=== PATIENT | male | born 1985 | race American Indian/Alaskan Native ===

== ENCOUNTER 2021-03-23 12:50 | Emergency (ER) | payer MEDICARE ==
[2021-03-23 13:00] VITALS: BP 105/52
--- NOTE | 2021-03-23 14:15 | XRay Report ---
RIGHT HAND 4 VIEW(S) INDICATION / CLINICAL INFORMATION: PAIN AND SWELLING COMPARISON: None available. FINDINGS: BONES / JOINT(S): There is dorsal subluxation of the bases of the fourth and fifth metacarpals with a n adjacent osseous fragment likely representing a distal carpal row fracture/base of the metacarpal fracture. No significant arthritis. SOFT TISSUES: There is dorsal soft tissue swelling. ADDITIONAL FINDINGS: None. Signer Name: Humphrey Prakash DO Signed: 03/23/2021 2:10 PM Workstation Name: [id number]
--- NOTE | 2021-03-23 15:03 | Emergency Department Report ---
ED General Adult HPI - General Chief complaint: Extremity Injury, Upper Stated complaint: BROKEN FINGER ON RIGHT HAND Time Seen by Provider: 03/23/21 14:17 Source: patient Mode of arrival: Ambulatory Limitations: No Limitations - History of Present Illness Initial comments: 35-year-old [id number] male patient presents to the emergency department with complaints of right hand pain for 1 week. Patient states he became agitated while he was at another hospital and punched a wall. No other injuries. Patient has been taking Motrin with limited relief. No history of prior injuries to the right hand. Denies headache, neck pain, shoulder pain, elbow pain, wrist pain, paresthesias, numbness. Denies all other complaints at this time. - Related Data Previous Rx's Medication Instructions Recorded Last Taken Type Naproxen 500 mg PO BID #20 tablet 03/23/21 Unknown Rx Allergies Allergy/AdvReac Type Severity Reaction Status Date / Time No Known Allergies Allergy Unverified 03/23/21 12:54 ED Review of Systems ROS: Stated complaint: BROKEN FINGER ON RIGHT HAND Other details as noted in HPI Other: GENERAL: Negative for fever. CARDIOVASCULAR: Negative for chest pain. PULMONARY: Negative for shortness of breath. GASTROINTESTINAL: Negative for abdominal pain. MUSCULOSKELETAL: Positive for hand pain. NEUROLOGICAL: Negative for headache. INTEGUMENTARY: Negative for rash. ED Past Medical Hx - Past Medical History Hx Hypertension: Yes Hx Diabetes: Yes - Social History Smoking Status: Never Smoker Substance Use Type: None - Medications Home Medications: Home Medications Medication Instructions Recorded Confirmed Last Taken Type Naproxen 500 mg PO BID #20 tablet 03/23/21 Unknown Rx ED Physical Exam - General Limitations: No Limitations - Other Other exam information: General: Awake, appropriately interactive, no acute distress. Neck: Supple. Full range of motion intact. Cardiovascular: Normal peripheral perfusion. Pulmonary: No respiratory distress. Patient is speaking normally without use of accessory muscles. Skin: No apparent rashes or lesions. Neurological: No facial asymmetry. Speech is clear. Follows commands. Patient is alert and oriented. Musculoskeletal: Tenderness to palpation throughout the dorsal aspect of the right hand, most pronounced along the fourth/fifth MCP joints, with diffuse soft tissue swelling. There is ecchymosis to the palmar surface of the right hand. There is no tenderness of the anatomical snuffbox. Strong radial pulse. Distal neurovascular and motor/sensory function intact. Psych: Cooperative. Appropriate mood and affect. ED Course Vital Signs 03/23/21 12:54 Temperature 98.2 F Pulse Rate 98 H Respiratory 20 Rate Blood Pressure 105/52 O2 Sat by Pulse 96 Oximetry ED Medical Decision Making - Radiology Data [facility] [address] [place] [address] XRay Report Signed Patient: IVONE LY MR#: [id number] 2 : 1985 Acct:[id number] Age/Sex: 35 / M ADM Date: 03/23/21 Loc: ED Attending Dr: Ordering Physician: BEAU LOVE MD Date of Service: 03/23/21 Procedure(s): XR hand 3+V RT Accession Number(s): [id number] cc: ED MD IVAN Fluoro Time In Minutes: RIGHT HAND 4 VIEW(S) INDICATION / CLINICAL INFORMATION: PAIN AND SWELLING COMPARISON: None available. FINDINGS: BONES / JOINT(S): There is dorsal subluxation of the bases of the fourth and fifth metacarpals with an adjacent osseous fragment likely representing a distal carpal row fracture/base of the metacarpal fracture. No significant arthritis. SOFT TISSUES: There is dorsal soft tissue swelling. ADDITIONAL FINDINGS: None. Signer Name: Humphrey Rodriguez DO Signed: 03/23/2021 2:10 PM Workstation Name: [id number] Transcribed By: PRINCE Dictated By: HUMPHREY RODRIGUEZ DO Electronically Authenticated By: HUMPHREY RODRIGUEZ DO Signed Date/Time: 03/23/21 1410 DD/ 1407 TD/TT: - Medical Decision Making Differential diagnosis including but not limited to: sprain, strain, fracture, contusion, dislocation On reevaluation, patient remains stable. Repeat neurovascular exam remains intact. See above for x-ray results. No clinical indication for further diagnostic work-up on an emergent basis at this time. Patient will be placed in an ulnar gutter splint and discharged home with appropriate analgesics and referral to orthopedics for close outpatient follow-up. Patient expressed understanding and is agreeable to plan of care. RICE precautions discussed. Strict return precautions provided. Repeat exam is unremarkable and benign. History, exam, diagnostic testing, and current condition do not suggest worrisome pathology to warrant further testing, continued ED treatment, admission, or surgical evaluation at this point. Given the low probability of a significant medical illness, it would be more likely to result in harm than benefit to perform further testing at this stage. Discussed findings, presumptive diagnosis, need for follow-up and specific signs/symptoms that should prompt immediate return to the emergency department. Instructions were explained in detail to the patient in addition to giving written discharge information. Patient expressed understanding and was given the opportunity to ask questions, all of which were satisfactorily answered prior to discharge home. Critical care attestation.: If time is entered above; I have spent that time in minutes in the direct care of this critically ill patient, excluding procedure time. ED Disposition Clinical Impression: Metacarpal bone fracture Qualifiers: Encounter type: initial encounter Metacarpal bone: unspecified metacarpal Fracture type: closed Metacarpal location: base Fracture morphology: unspecified fracture morphology Fracture alignment: nondisplaced Qualified Code(s): S62.349A - Nondisplaced fracture of base of unspecified metacarpal bone, initial encounter for closed fracture Disposition: TO HOME OR SELFCARE Is pt being admited?: No Does the pt Need Aspirin: No Condition: Stable Instructions: Metacarpal Fracture, [id number] Additional Instructions: Take Tylenol every 4 hours as needed for pain. Take Naprosyn twice daily with food as needed for pain. Wear splint as directed. Keep right hand elevated as often as possible to reduce swelling. Follow-up with Dr. Pack, orthopedics, this week. Call today to schedule an appointment. See referral information below. Return to the emergency department immediately for new or worsening symptoms. Prescriptions: Naproxen 500 mg PO BID #20 tablet Referrals: IVONE PACK MD [Staff Physician] - 3-5 Days Time of Disposition: 15:03
== END 2021-03-23 15:30 | disposition home or self-care (01) ==
LOC: EDBD → ED 12:50
DX: S62.314A Displaced fracture of base of fourth metacarpal bone, right hand, initial encounter for closed fracture (principal); S62.316A Displaced fracture of base of fifth metacarpal bone, right hand, initial encounter for closed fracture; I10 Essential (primary) hypertension; E11.9 Type 2 diabetes mellitus without complications; Z79.899 Other long term (current) drug therapy; W22.01XA Walked into wall, initial encounter; Y93.89 Activity, other specified; Y92.89 Other specified places as the place of occurrence of the external cause; Y99.8 Other external cause status